=== PATIENT | male | born 1985 | race Caucasian/White ===

== ENCOUNTER 2016-11-17 09:47 | Emergency (ER) | payer MEDICARE, MEDICAID ==
[~2016-11-17] VITALS: Ht 180.3 cm; Wt 72.7 kg
[2016-11-17] MEDS ORDERED: TRAZ-144 PO (09:59)
[2016-11-17] MEDS ORDERED: SERT100T12 PO (09:59)
[2016-11-17] MEDS ORDERED: ALBU8HFA IH (09:59)
[2016-11-17] MEDS ORDERED: TOPI25 PO (09:59)
[2016-11-17 10:19] VITALS: BP 121/77
== END 2016-11-17 10:58 | disposition home or self-care (01) ==
LOC: EMS 09:49
DX: Z76.0 Encounter for issue of repeat prescription (principal); J06.9 Acute upper respiratory infection, unspecified; J45.909 Unspecified asthma, uncomplicated
CPT/HCPCS: 99283

== ENCOUNTER 2017-09-21 11:35 | Inpatient (IN) | payer MEDICARE, MEDICAID ==
[~2017-09-21] VITALS: Ht 182.9 cm; Wt 78.0 kg
[~2017-09-21 11:35] MED LIST: ALBU8HFA IH; SERT100T12 PO; TOPI25 PO; TRAZ-144 PO
[2017-09-21] MEDS ORDERED: HYD25 PO (11:44)
[2017-09-21 12:09] LABS: BASOPHILS % (AUTO) 0.3 % (0.0-2.0); EOSINOPHILS % (AUTO) 0.4 % (1.0-6.0); HEMATOCRIT 47.7 % (41-53); HEMOGLOBIN 16.5 g/dL (13.5-17.5); LYMPHOCYTES # (AUTO) 1.4 K/uL (1.0-4.8); LYMPHOCYTES % (AUTO) 17.7 % (22.0-44.0); MEAN CORPUSCULAR HEMOGLOBIN 28.9 pg (26.0-34.0); MEAN CORPUSCULAR HGB CONC 34.6 G/dL (31.0-37.0); MEAN CORPUSCULAR VOLUME 84 fL (80-100); MONOCYTES # (AUTO) 0.6 K/uL (0.1-1.0); MONOCYTES % (AUTO) 7.8 % (2.0-9.0); NEUTROPHILS # (AUTO) 5.7 K/uL (1.8-7.7); NEUTROPHILS % (AUTO) 73.8 % (40.0-70.0); PLATELET COUNT (AUTO) 289 K/uL (150-450); RED BLOOD CELL COUNT(AUTO) 5.71 MIL/uL (4.50-5.90); RED CELL DISTRIBUTION WIDTH 13.4 % (11.5-14.5)
[2017-09-21] MEDS ORDERED: MAGNESIUM SULFATE 2 GM, MVI, ADULT NO.1 WITH VIT K 10 ML, THIAMINE HCL 100 MG, FOLIC AC... IV ONE ×5 (12:15)
[2017-09-21] MEDS ORDERED: SODIUM CHLORIDE 0.9% 1,000 ML IV ONE (12:15)
[2017-09-21 12:19] LABS: ANION GAP 15 mmol/L (8-16); CALCIUM, TOTAL 9.8 mg/dL (8.8-10.5); CARBON DIOXIDE 23 mmol/L (22-29); CHLORIDE 102 mmol/L (98-107); CREATININE 1.17 mg/dL (0.60-1.30); GLOMERULAR FILTR. RATE CALC > 60 mL/min (>60); GLUCOSE,RANDOM 106 mg/dL (70-110); SODIUM SERUM 140 mmol/L (136-145); UREA NITROGEN, BLOOD 11 mg/dL (7-18)
[2017-09-21 12:24] LABS: ALANINE AMINOTRANSFERASE 33 U/L (12-78); ALBUMIN 4.4 g/dL (3.4-5.0); ALKALINE PHOSPHATASE 142 U/L (46-116); ASPARTATE AMINOTRANSFERASE 25 U/L (15-37); BILIRUBIN,TOTAL 0.7 mg/dL (0.1-1.0); TOTAL PROTEIN, SERUM 8.1 g/dL (6.4-8.2)
[2017-09-21] MEDS ORDERED: HALOPERIDOL 5 MG TABLET PO PRN (14:00)
[2017-09-21 14:28] LABS: CHOL/HDL RATIO 2.8 (4.2-7.3); CHOLESTEROL 159 mg/dL (131-200); FREE T4 (FREE THYROXINE) 0.94 ng/dL (0.76-1.46); HDL CHOLESTEROL 57 mg/dL (40-60); LDL CHOL (CALC.) 85 mg/dL (0-130); THYROID STIMULATING HORMONE 0.74 uIU/mL (0.36-3.74); TRIGLYCERIDES 86 mg/dL (15-150)
[2017-09-21 14:53] LABS: AMPHET/METH SCREEN,URINE NEGATIVE (NEGATIVE); BARBITURATE SCREEN, URINE NEGATIVE (NEGATIVE); BENZODIAZEPINES SCREEN,URINE NEGATIVE (NEGATIVE); CANNABINOID SCREEN,URINE NEGATIVE (NEGATIVE); COCAINE SCREEN,URINE NEGATIVE (NEGATIVE); METHADONE SCREEN, URINE NEGATIVE (NEGATIVE); OPIATE SCREEN,URINE NEGATIVE (NEGATIVE)
[2017-09-21 14:55] LABS: PHENCYCLIDINE SCREEN,URINE NEGATIVE (NEGATIVE)
[2017-09-21 18:15] VITALS: BP 128/77
[2017-09-21] MEDS ORDERED: PNEUMOCOCCAL VACCINE POLYVALENT 0.5 ML VIAL [PPSV23] IM ONE (18:45)
[2017-09-21] MEDS ORDERED: INFLUENZA VIRUS VACCINE QVS 2017-18 (3YR+)/PF 60 MCG/0.5 ML SYRINGE IM ONE (18:45)
[2017-09-21] MEDS ORDERED: IBUPROFEN 400 MG TABLET PO PRN (20:30)
[2017-09-21] MEDS ORDERED: ACETAMINOPHEN 325 MG TABLET PO PRN (20:30)
[2017-09-21] MEDS ORDERED: ALBUTEROL SULFATE HFA 90 MCG/PUFF 8 GM INHALER IH PRN (20:30)
[2017-09-21] MEDS: LORazepam 2 MG TABLET PO PRN (21:09)
[2017-09-22 00:01] VITALS: BP 130/72
[2017-09-22] MEDS: LORazepam 2 MG TABLET PO PRN ×3 (07:50→22:05)
[2017-09-22 08:30] LABS: HEMOGLOBIN A1C 5.2 % (4.5-6.2)
[2017-09-22 09:01] LABS: CHOL/HDL RATIO 2.4 (4.2-7.3); THYROID STIMULATING HORMONE 1.31 uIU/mL (0.36-3.74)
[2017-09-22 09:44] VITALS: BP 133/89
[2017-09-22 16:12] VITALS: BP 127/76
[2017-09-22] MEDS: TOPIRAMATE 25 MG TABLET PO SCH (20:31)
[2017-09-23 06:55] VITALS: BP 108/65
[2017-09-23 08:40] VITALS: BP 116/72
[2017-09-23] MEDS: SERTRALINE HCL 100 MG TABLET PO SCH (09:07)
[2017-09-23] MEDS: LORazepam 2 MG TABLET PO PRN (14:38)
[2017-09-23 16:15] VITALS: BP 134/84
[2017-09-23] MEDS: TOPIRAMATE 25 MG TABLET PO SCH (20:27)
[2017-09-23] MEDS: ZOLPIDEM TARTRATE 10 MG TABLET PO PRN (21:10)
[2017-09-24 01:12] VITALS: BP 107/80
[2017-09-24 08:31] VITALS: BP 125/69
[2017-09-24] MEDS: SERTRALINE HCL 100 MG TABLET PO SCH (08:49)
[2017-09-24] MEDS: LORazepam 2 MG TABLET PO PRN (14:33)
[2017-09-24 16:34] VITALS: BP 120/80
[2017-09-24] MEDS: TOPIRAMATE 25 MG TABLET PO SCH (20:42)
[2017-09-25] VITALS: BP 131/87
[2017-09-25] MEDS: ZOLPIDEM TARTRATE 10 MG TABLET PO PRN (00:51)
[2017-09-25 08:34] VITALS: BP 124/60
[2017-09-25] MEDS: SERTRALINE HCL 100 MG TABLET PO SCH (08:57)
== END 2017-09-25 14:20 | disposition home or self-care (01) | DRG 881 ==
LOC: EMS 11:38 → B2X 17:05
PROVIDERS: ADMIT Psychiatry & Neurology Psychiatry; ATTEND Psychiatry & Neurology Psychiatry
DX: F32.9 Major depressive disorder, single episode, unspecified (principal); R45.851 Suicidal ideations; E78.5 Hyperlipidemia, unspecified; F10.10 Alcohol abuse, uncomplicated; F41.9 Anxiety disorder, unspecified; J45.909 Unspecified asthma, uncomplicated; Z91.5 Personal history of self-harm; Z79.899 Other long term (current) drug therapy
CPT/HCPCS: 83036; 84439; 84443; 96365; 99285; G0480; J3411; J3475; J3490; J7030